=== PATIENT | male | born 1970 | race Caucasian/White ===

== ENCOUNTER 2020-10-20 13:38 | Emergency (ER) | payer SELFPAY ==
[~2020-10-20] VITALS: Ht 175.3 cm; Wt 108.9 kg
[2020-10-20 13:41] VITALS: BP_SYST 194
[2020-10-20] MEDS ORDERED: cloNIDine HCL 0.1 MG TABLET PO ONE (14:00)
[2020-10-20] MEDS ORDERED: LORazepam 1 MG TABLET PO ONE (14:00)
[2020-10-20] MEDS ORDERED: cloNIDine HCL 0.1 MG TABLET ONE (14:01)
[2020-10-20] MEDS ORDERED: HYDR25TA4 PO (14:59)
[2020-10-20] MEDS ORDERED: SER100 PO (14:59)
[2020-10-20 15:18] VITALS: BP_SYST 160
== END 2020-10-20 15:18 | disposition home or self-care (01) ==
LOC: SED 13:38
DX: I10 Essential (primary) hypertension (principal); F20.9 Schizophrenia, unspecified
CPT/HCPCS: 99285